=== PATIENT | female | born 2000 | race African-American/Black ===

== ENCOUNTER 2022-07-25 12:57 | Inpatient (IN) ==
[2022-07-25 13:25] LABS: Urine Appearance Clear (Clear); Urine Color Yellow (Yellow)
[2022-07-25 13:26] LABS: Glucose,Urine (UA) 500 mg/dL (Negative); Ketones,Urine Negative (Negative); Nitrite,Urine Negative (Negative); Protein,Urine Negative (Negative); Urine Specific Gravity 1.015 (1.001-1.035)
[2022-07-25 13:27] LABS: Bilirubin,Urine Negative (Negative); Blood, Urine Negative (Negative); Urine Urobilinogen 0.2 eU/dL (<2.0)
[2022-07-25 13:31] LABS: Bacteria,Urine Occasional /HPF (Few); RBC,Urine 1 /HPF (0-4); Squamous Epithelial Cell,Urine Occasional /HPF (0-10)
[2022-07-25 13:51] LABS: Basophils % 0.5 % (0.0-0.8); Eosinophils % 0.2 % (0.00-10.9); Hematocrit 34.2 VOL% (35.7-47.0); Hemoglobin 11.3 GM/DL (12.0-16.0); Immature Granulocytes Absolute 0.09 #; Lymphocytes # 0.9 10*3/uL (1.4-4.0); Lymphocytes % 10.1 % (21.3-54.2); Mean Corpuscular Volume 96.6 FL (87-102); Mean Platelet Volume 10.4 FL (9.6-12.0); Monocytes # 1.2 10*3/uL (0.11-0.8); Monocytes % 13.4 % (1.7-12.7); Neutrophils % 74.8 % (38.7-73.9); Platelet Count 197 T/CUMM (130-400); Red Blood Count 3.54 MC/CUMM (3.8-5.5); Red Cell Distribution Width 12.9 % (9.3-17.3); White Blood Count 8.8 T/CUMM (4-12)
[2022-07-25 14:09] LABS: Alanine Aminotransferase 24 U/L (13-56); Albumin 2.6 G/DL (3.4-5.0); Alkaline Phosphatase 94 U/L (45-117); Aspartate Amino Transferase 17 U/L (0-37); Bilirubin,Total < 0.39 MG/DL (0.20-1.00); Blood Urea Nitrogen 10 MG/DL (7-18); Carbon Dioxide 21 MMOL/L (21-32); Chloride 108 MMOL/L (98-107); Glucose 210 MG/DL (74-106); Osmolality,Calculated 277.8 MOS/KG (273-304); Potassium 3.6 MMOL/L (3.5-5.1); Sodium 137 MMOL/L (136-145)
[2022-07-25] MEDS ORDERED: SODIUM CHLORIDE 0.9% 1,000 ML IV ONE (14:35)
[2022-07-25] MEDS ORDERED: GLUCAGON 1 MG VIAL IM PRN (14:49)
[2022-07-25] MEDS ORDERED: DEXTROSE 10% 250 ML BAG IV PRN (14:53)
[2022-07-25] MEDS ORDERED: SODIUM CHLORIDE 0.9% 1,000 ML IV SCH (16:00)
[2022-07-25] MEDS: INSULIN LISPRO 100 UNIT/ML SUBCUT SCH ×2 (17:25→21:13)
[2022-07-25] MEDS: OSELTAMIVIR 75 MG CAPSULE PO SCH ×2 (17:50→20:40)
[2022-07-25] MEDS ORDERED: ACETAMINOPHEN 500 MG TABLET PO PRN (20:47)
[2022-07-26] MEDS: INSULIN LISPRO 100 UNIT/ML SUBCUT SCH ×2 (08:08→13:26)
[2022-07-26] MEDS: OSELTAMIVIR 75 MG CAPSULE PO SCH (08:19)
[2022-07-26] MEDS ORDERED: INSULIN GLARGINE 100 UNIT/ML SUBCUT SCH (09:00)
[2022-07-26] MEDS ORDERED: ASPIRIN EC 81 MG TABLET PO SCH (09:00)
[2022-07-26] MEDS ORDERED: MULTIVITAMIN (PRENATAL) TABLET PO SCH ×2 (09:00)
[2022-07-26] MEDS ORDERED: FERROUS SULFATE 325 MG TABLET PO SCH (09:00)
[2022-07-26 12:56] VITALS: BP 103/65
== END 2022-07-26 16:05 | disposition home or self-care (01) | DRG 566 ==
LOC: N.LDOUT 12:57 → N.LD 13:00 → N.OB 14:42 → N.LD 15:42 → N.OB 21:30
PROVIDERS: ADMIT Obstetrics & Gynecology; ATTEND Obstetrics & Gynecology

== ENCOUNTER 2022-08-04 16:30 | Inpatient (IN) ==
[2022-08-04] MEDS ORDERED: OXYTOCIN/LR 20 UNIT/1,000 ML BAG IV ONE (16:37)
[2022-08-04] MEDS ORDERED: miSOPROStoL 200 MCG TABLET RECTAL PRN (16:37)
[2022-08-04] MEDS ORDERED: BUTORPHANOL 2 MG/ML VIAL IV PRN (16:37)
[2022-08-04] MEDS ORDERED: TRANEXAMIC ACID 1,000 MG in SODIUM CHLORIDE 0.9% 100 ML IV PRN (16:37)
[2022-08-04] MEDS ORDERED: CARBOPROST TROMETHAMINE 250 MCG/ML AMP IM PRN (16:37)
[2022-08-04] MEDS ORDERED: ONDANSETRON 4 MG/2 ML VIAL IV PRN (16:37)
[2022-08-04] MEDS ORDERED: METHYLERGONOVINE 0.2 MG/1 ML AMP IM PRN (16:37)
[2022-08-04] MEDS ORDERED: MEPERIDINE 50 MG/1 ML VIAL IV PRN (16:37)
[2022-08-04 17:00] LABS: Basophils % 0.3 % (0.0-0.8); Eosinophils % 0.3 % (0.00-10.9); Hematocrit 36.9 VOL% (35.7-47.0); Hemoglobin 11.6 GM/DL (12.0-16.0); Immature Granulocytes % 1.7 %; Immature Granulocytes Absolute 0.16 #; Lymphocytes # 1.5 10*3/uL (1.4-4.0); Mean Corpuscular HGB Conc 31.4 GM/DL (32-36); Mean Corpuscular Volume 99.7 FL (87-102); Mean Platelet Volume 10.4 FL (9.6-12.0); Monocytes # 0.8 10*3/uL (0.11-0.8); Monocytes % 7.9 % (1.7-12.7); NRBC # 0.02 10*3/uL; Neutrophils % 73.8 % (38.7-73.9); Platelet Count 241 T/CUMM (130-400); Red Cell Distribution Width 12.5 % (9.3-17.3); White Blood Count 9.65 T/CUMM (4-12)
[2022-08-04] MEDS ORDERED: LACTATED RINGERS 1,000 ML IV SCH (17:00)
[2022-08-04 17:22] LABS: Alanine Aminotransferase 37 U/L (13-56); Albumin 2.8 G/DL (3.4-5.0); Alkaline Phosphatase 103 U/L (45-117); Aspartate Amino Transferase 23 U/L (0-37); Bilirubin,Total < 0.39 MG/DL (0.20-1.00); Blood Urea Nitrogen 7 MG/DL (7-18); Calcium 8.5 MG/DL (8.5-10.1); Carbon Dioxide 24 MMOL/L (21-32); Chloride 108 MMOL/L (98-107); Glucose 94 MG/DL (74-106); Osmolality,Calculated 274.5 MOS/KG (273-304); Potassium 3.7 MMOL/L (3.5-5.1); Sodium 139 MMOL/L (136-145); Total Protein 6.5 G/DL (6.4-8.2)
[2022-08-04] MEDS: INSULIN REGULAR 100 UNIT/ML SUBCUT SCH ×2 (17:56→21:47)
[2022-08-05] MEDS ORDERED: diphenhydrAMINE 50 MG/1 ML VIAL IV PRN ×2 (00:50)
[2022-08-05] MEDS ORDERED: ePHEDrine 50 MG/ML VIAL IV PRN (00:50)
[2022-08-05] MEDS ORDERED: NALOXONE 0.4 MG/ML VIAL IV PRN (00:50)
[2022-08-05] MEDS ORDERED: hydrOXYzine HCL 25 MG/1 ML VIAL IM PRN (00:50)
[2022-08-05] MEDS ORDERED: PROMETHAZINE 25 MG/1 ML VIAL IM PRN (00:50)
[2022-08-05] MEDS ORDERED: FAMOTIDINE 20 MG/2 ML VIAL IV ONE ×2 (00:53→00:58)
[2022-08-05] MEDS ORDERED: CITRIC ACID/SODIUM CITRATE 30 ML UDCUP PO ONE (00:53)
[2022-08-05] MEDS ORDERED: ePHEDrine 50 MG/ML VIAL ONE (00:58)
[2022-08-05] MEDS ORDERED: fentaNYL 2 MCG/ROPIV 0.2% EPID 100 ML EPIDURAL SCH (01:00)
[2022-08-05] MEDS ORDERED: OXYTOCIN/LR 20 UNIT/1,000 ML BAG IV SCH (01:00)
[2022-08-05] MEDS ORDERED: OXYTOCIN/LR 30 UNIT/1,000 ML BAG IV ONE (02:52)
[2022-08-05] MEDS: INSULIN REGULAR 100 UNIT/ML SUBCUT SCH ×2 (02:53→07:09)
[2022-08-05 03:10] LABS: Bacteria,Urine Occasional /HPF (Few); Mucus,Urine Occasional /LPF (Occasional); RBC,Urine <1 /HPF (0-4); Squamous Epithelial Cell,Urine Occasional /HPF (0-10)
[2022-08-05 03:13] LABS: Glucose,Urine (UA) Negative (Negative); Ketones,Urine Negative (Negative); Nitrite,Urine Negative (Negative); Protein,Urine Negative (Negative); Urine Appearance Clear (Clear); Urine Color Yellow (Yellow); Urine pH 7.5 (4.5-8.0)
[2022-08-05 03:14] LABS: Bilirubin,Urine Negative (Negative); Blood, Urine Negative (Negative); Urine Urobilinogen 0.2 eU/dL (<2.0)
[2022-08-05] MEDS ORDERED: CARBOPROST TROMETHAMINE 250 MCG/ML AMP IM ONE (03:42)
[2022-08-05] MEDS ORDERED: SODIUM CHLORIDE 0.9% 0 ML IV ONE (03:42)
[2022-08-05] MEDS ORDERED: OXYTOCIN/LR 20 UNIT/1,000 ML BAG IV ONE ×2 (03:42→05:43)
[2022-08-05] MEDS ORDERED: TRANEXAMIC ACID 1,000 MG/10 ML VIAL ONE (03:42)
[2022-08-05] MEDS ORDERED: METHYLERGONOVINE 0.2 MG/1 ML AMP ONE (03:42)
[2022-08-05] MEDS ORDERED: miSOPROStoL 200 MCG TABLET ONE (03:42)
[2022-08-05] MEDS ORDERED: LIDOCAINE MPF 2% /EPI 20 ML VIAL ONE (04:08)
[2022-08-05] MEDS ORDERED: fentaNYL 100 MCG/2 ML VIAL ONE (04:08)
[2022-08-05 05:08] LABS: Cord Arterial Blood HCO3 18.4 MMOL/L
[2022-08-05 05:10] LABS: Cord Venous Blood HCO3 22.5 MMOL/L; Cord Venous Blood PCO2 45.4 MMHG; Cord Venous Blood PO2 33.4
[2022-08-05] MEDS ORDERED: BISACODYL 10 MG SUPP RECTAL PRN (05:43)
[2022-08-05] MEDS ORDERED: ACETAMINOPHEN 325 MG TABLET PO PRN (05:43)
[2022-08-05] MEDS ORDERED: MEASLES/MUMPS/RUBELLA VACCINE 0.5 ML VIAL SUBCUT ONE (05:43)
[2022-08-05] MEDS ORDERED: ONDANSETRON 4 MG/2 ML VIAL IV PRN (05:43)
[2022-08-05] MEDS ORDERED: LANOLIN 50% CREAM 0.3 OZ TUBE TOP PRN (05:43)
[2022-08-05] MEDS ORDERED: DIPH/TET/ACEL PERT BOOSTER VACCINE 0.5 ML VIAL IM ONE (05:43)
[2022-08-05] MEDS ORDERED: HYDROCORTISONE 2.5% RECTAL CREAM 30 GM TUBE TOP PRN (05:43)
[2022-08-05] MEDS ORDERED: RHO(D) IMMUNE GLOBULIN 300 MCG SYRINGE IM ONE (05:43)
[2022-08-05] MEDS ORDERED: oxyCODONE/ACETAMINOPHEN 5-325 MG TABLET PO PRN (05:43)
[2022-08-05] MEDS ORDERED: WITCH HAZEL PADS 100/JAR TOP PRN (05:43)
[2022-08-05] MEDS: IBUPROFEN 800 MG TABLET PO PRN ×2 (08:00→17:22)
[2022-08-05] MEDS: BENZOCAINE 20%/MENTHOL 0.5% SPRAY 56 GM CAN TOP PRN (09:38)
[2022-08-05] MEDS: DOCUSATE SODIUM 100 MG CAPSULE PO SCH ×2 (09:39→22:04)
[2022-08-05] MEDS: oxyCODONE/ACETAMINOPHEN 5-325 MG TABLET PO PRN ×3 (09:41→23:01)
[2022-08-05] MEDS ORDERED: GLUCAGON 1 MG VIAL IM PRN (09:51)
[2022-08-05] MEDS ORDERED: DEXTROSE 10% 250 ML BAG IV PRN (09:53)
[2022-08-05] MEDS: INSULIN LISPRO 100 UNIT/ML SUBCUT SCH ×2 (17:15→22:04)
[2022-08-06] MEDS: IBUPROFEN 800 MG TABLET PO PRN ×3 (03:11→16:07)
[2022-08-06 04:59] LABS: Basophils % 0.3 % (0.0-0.8); Eosinophils # 0.1 10*3/uL (0.0-0.87); Eosinophils % 0.6 % (0.00-10.9); Hematocrit 27.7 VOL% (35.7-47.0); Hemoglobin 9.2 GM/DL (12.0-16.0); Immature Granulocytes % 0.9 %; Immature Granulocytes Absolute 0.13 #; Lymphocytes % 14.5 % (21.3-54.2); Mean Corpuscular HGB Conc 33.2 GM/DL (32-36); Mean Corpuscular Volume 96.9 FL (87-102); Mean Platelet Volume 10.7 FL (9.6-12.0); Monocytes % 6.9 % (1.7-12.7); Neutrophils % 76.8 % (38.7-73.9); Platelet Count 186 T/CUMM (130-400); Red Blood Count 2.86 MC/CUMM (3.8-5.5); Red Cell Distribution Width 12.6 % (9.3-17.3); White Blood Count 13.97 T/CUMM (4-12)
[2022-08-06] MEDS: INSULIN LISPRO 100 UNIT/ML SUBCUT SCH ×4 (08:19→21:09)
[2022-08-06] MEDS: FERROUS SULFATE 325 MG TABLET PO SCH ×2 (08:42→21:03)
[2022-08-06] MEDS: INSULIN GLARGINE 100 UNIT/ML SUBCUT SCH (08:43)
[2022-08-06] MEDS: DOCUSATE SODIUM 100 MG CAPSULE PO SCH ×2 (08:43→21:03)
[2022-08-06] MEDS: oxyCODONE/ACETAMINOPHEN 5-325 MG TABLET PO PRN ×2 (08:56→21:04)
[2022-08-06] MEDS: BENZOCAINE 20%/MENTHOL 0.5% SPRAY 56 GM CAN TOP PRN (21:05)
[2022-08-07] MEDS: IBUPROFEN 800 MG TABLET PO PRN ×2 (01:43→08:13)
[2022-08-07] MEDS: DOCUSATE SODIUM 100 MG CAPSULE PO SCH (08:12)
[2022-08-07] MEDS: FERROUS SULFATE 325 MG TABLET PO SCH (08:12)
[2022-08-07 08:22] VITALS: BP 148/83
[2022-08-07] MEDS: INSULIN LISPRO 100 UNIT/ML SUBCUT SCH ×2 (08:26→12:55)
[2022-08-07] MEDS: INSULIN GLARGINE 100 UNIT/ML SUBCUT SCH (10:04)
[2022-08-07] MEDS: oxyCODONE/ACETAMINOPHEN 5-325 MG TABLET PO PRN (11:38)
[2022-08-07] MEDS: BENZOCAINE 20%/MENTHOL 0.5% SPRAY 56 GM CAN TOP PRN (12:48)
== END 2022-08-07 14:10 | disposition home or self-care (01) | DRG 560 ==
LOC: N.LDOUT 16:30 → N.LD 16:31 → N.OB 08-05 09:33
PROVIDERS: ADMIT Obstetrics & Gynecology; ATTEND Obstetrics & Gynecology